=== PATIENT | female | born 1960 | race Asian ===

== ENCOUNTER 2016-09-08 14:25 | Outpatient (CLI) | payer OTHER ==
[2016-09-08] MEDS ORDERED: CLON0.5T36 PO (15:41)
[2016-09-08] MEDS ORDERED: GABA100C2 PO (15:42)
[2016-09-08] MEDS ORDERED: PERPHENAZINE4 MG PO (15:42)
[2016-09-08] MEDS ORDERED: PHEN125S PO (15:43)
[2016-09-08] MEDS ORDERED: CARAFATE1 GM PO (15:43)
[2016-09-08] MEDS ORDERED: MARINOL2.5 MG PO (15:44)
[2016-09-08] MEDS ORDERED: LIPITOR40 MG PO (15:44)
[2016-09-08] MEDS ORDERED: AMLO2.5T PO (15:45)
[2016-09-08] MEDS ORDERED: REMERON SOLTAB15 MG PO (15:45)
[2016-09-08] MEDS ORDERED: LEVO0.0529 PO (15:45)
[2016-09-08] MEDS ORDERED: MULTIVITAMI1 PO (15:46)
[2016-09-08] MEDS ORDERED: CELEXA10 MG PO (15:46)
[2016-09-08] MEDS ORDERED: FOLI1TAB26 PO (15:47)
[2016-09-08] MEDS ORDERED: TRILEPTAL300 MG PO (15:47)
[2016-09-08] MEDS ORDERED: BUSPIRONE10 MG PO (15:48)
[2016-09-08] MEDS ORDERED: MIRALAX3350 N1 PO (15:48)
[2016-09-08] MEDS ORDERED: HALO5TAB10 PO (15:50)
== END 2016-09-08 15:07 | disposition short-term general hospital (02) ==
LOC: AMB 14:25
DX: F03.91 Unspecified dementia, unspecified severity, with behavioral disturbance (principal)
CPT/HCPCS: A0425; A0428